=== PATIENT | female | born 1960 | race Caucasian/White ===

== ENCOUNTER 2016-11-06 17:42 | Observation (INO) | payer OTHER ==
[~2016-11-06] VITALS: Ht 154.9 cm; Wt 93.7 kg
[~2016-11-06 17:42] MED LIST: AFRIN,GENASAL D15 ML BOTH NARES; ALKA-SELTZER P1 EAC2 PO; AMBIEN10 MG PO; ASPIR-TRIN325 M1 PO; ASPIRIN EC325 MG PO; ASPIRIN81 M2 PO; Ascorbic Acid,Ester- PO; BACTRIM,SEPT1 TABLET PO; BENTYL10 MG PO; CARDIZEM CD,CA180 MG PO; CLINDAMYCIN HC300 MG PO; CLOPIDOGREL75 MG PO; COZAAR25 MG PO; CRESTOR PO; CRESTOR40 MG PO; Colace PO; DILTIAZEM 24HR180 MG PO; DULERA 100 MCG/13 GM IH; DULERA 200 MCG/13 GM IH; Dulcolax PO; Ecotrin PO; FENOFIBRATE160 M1 PO; FENOFIBRATE54 M1 PO; FLONASE16 G1 BOTH NARES; FUROSEMIDE20 MG PO; FUROSEMIDE40 MG PO; IMDUR30 MG PO; IMDUR60 MG PO; INSULIN PUMP SC; INSULIN PUMP SCCONT; ISOSORBIDE MONO60 MG PO; K-DUR20 MEQ PO; KLOR-CON M2020 MEQ PO; KLOR-CON20 MEQ PO; LASIX20 MG PO; LEVOTHYROXINE112 MCG PO; LEVOTHYROXINE137 MCG PO; LEVOTHYROXINE50 MCG PO; LITE COAT ASPI325 M1 PO; LO-DOSE ASPIRIN81 M1 PO; LOPRESSOR100 M1 PO; LOPRESSOR25 MG PO; LOW DOSE ASPIRI81 M1 PO; Levothroid,Synthroid PO; METOLAZONE5 MG PO; METOPROLOL TAR100 MG PO; METOPROLOL TART50 MG PO; MIRTAZAPINE30 MG PO; NITROSTAT0.4 MG SL; NORVASC5 MG PO; NOVOLIN N100 UNITS/ SC; NOVOLIN,HU100 UNITS1 SC; NOVOLOG MI100 UNIT/4 SC; NOVOLOG100 UNIT/1 SQ; PERCOCET 5/31 TABLET PO; PLAVIX75 MG PO; PROAIR HFA8.5 GM IH; Phenergan PO; RANEXA1000 MG PO; RANEXA500 MG PO; SALINE NASAL SP45 ML BOTH NARES; SENOKOT S,PE1 TABLET PO; SINGULAIR10 MG PO; SYNTHROID100 MCG PO; SYNTHROID137 MCG PO; SYNTHROID150 MCG PO; SYNTHROID25 MCG PO; SYNTHROID50 MCG PO; TAZTIA XT180 M1 PO; THERAGRAN1 TABLET PO; TRICOR145 MG PO; Tricor PO; Tylenol Regular Stre PO; ULTRAM50 MG PO; VENTOLIN HFA18 GM IH; VISTARIL25 MG PO; WELCHOL625 MG PO; ZETIA10 MG PO; ZOFRAN ODT4 MG PO; ZOFRAN ODT8 MG PO; ZOFRAN8 MG PO
[2016-11-06 18:25] LABS: EOSINOPHIL (%) 1.6 % (0-5); EOSINOPHIL COUNT 0.2 K/uL (0-0.3); HEMATOCRIT 41.1 % (36.0-46.0); IMMATURE GRANULOCYTE (%) 0.2 % (0.0-0.7); IMMATURE GRANULOCYTE COUNT 0.2 K/uL; LYMPHOCYTE COUNT 1.3 K/uL (1.0-2.8); MCH 29.5 PG (29.0-34.0); MCHC 33.1 G/DL (30.0-36.0); MCV 89.2 FL (83-99); MEAN PLAT.VOLUME 9.3 uM^3 (9.5-12.4); MONOCYTE (%) 5.4 % (3-12); MONOCYTE COUNT 0.5 K/uL (0-0.8); NEUTROPHIL (%) 79.8 % (45-76); PLATELET COUNT 260 K/uL (156-360); RBC DIS.WIDTH-CV 13.8 % (11.8-14.6); RBC DIS.WIDTH-SD 44.1 % (39-53); RED BLOOD COUNT 4.61 M/uL (3.80-5.20); WHITE BLOOD COUNT 10.1 K/uL (4.1-10.2)
[2016-11-06 18:41] LABS: CHLORIDE 110 mEq/L (99-109); POTASSIUM 3.9 mEq/L (3.7-5.4); SODIUM 141 mEq/L (136-147)
[2016-11-06 18:44] LABS: GLUCOSE 120 mg/dL (70-99)
[2016-11-06 18:45] LABS: ANION GAP 9 MEQ/L (2-14)
[2016-11-06 18:46] LABS: TOTAL BILIRUBIN 0.3 mg/dL (0.0-1.0)
[2016-11-06 18:47] LABS: ALKALINE PHOSPHATASE 77 IU/L (3-129); GFR ESTIMATE (CALCULATED) > 59 mL/min/
[2016-11-06 18:48] LABS: UREA NITROGEN (BUN) 16 mg/dL (9-23)
[2016-11-06 18:51] LABS: LIPASE 10 U/L (1.0-51.0)
[2016-11-06 19:41] LABS: C DIFF TOXIN POSITIVE (NEGATIVE)
[2016-11-06 19:49] LABS: PROBE CHECK PASS
[2016-11-06 20:06] LABS: ADD MIUA? NO; BILIRUBIN NEGATIVE; BLOOD NEGATIVE; COLOR YELLOW ((YELLOW)); GLUCOSE (STRIP) NEGATIVE; KETONES NEGATIVE; LEUKOCYTES NEGATIVE; NITRITE NEGATIVE; PROTEIN (STRIP) NEGATIVE; SPECIFIC GRAVITY 1.009 (1.000-1.030); UCUL ADDED? NO; UROBILINOGEN 0.2 MG/DL (0.2-1.0)
[2016-11-06] MEDS ORDERED: METOPROLOL TART25 MG PO (21:14)
[2016-11-06] MEDS ORDERED: LEVO-T88 MCG PO (21:18)
[2016-11-06] MEDS ORDERED: ERGOCALCIF50000 UNIT PO (21:19)
[2016-11-06] MEDS ORDERED: ALLEGRA ALLERG180 MG PO (21:20)
[2016-11-06 23:33] VITALS: BP 132/63
[2016-11-07 01:26] LABS: POINT-OF-CARE METER ID UU13113831
[2016-11-07 03:51] VITALS: BP 120/56
[2016-11-07 05:34] LABS: POINT-OF-CARE METER ID UU13113831
[2016-11-07 07:28] LABS: ANION GAP 11 MEQ/L (2-14); CHLORIDE 111 MEQ/L (99-109); GFR ESTIMATE (CALCULATED) > 59 mL/min/; GLUCOSE 128 mg/dL (70-99); POTASSIUM 3.3 MEQ/L (3.7-5.4); SAMPLE HEMOLYSIS CHECK 0; SAMPLE ICTERIC CHECK 0; SAMPLE LIPEMIA CHECK 0; SODIUM 143 MEQ/L (136-147); UREA NITROGEN (BUN) 12 mg/dL (9-23)
[2016-11-07 07:29] LABS: EOSINOPHIL (%) 1.5 % (0-5); EOSINOPHIL COUNT 0.2 K/uL (0-0.3); HEMATOCRIT 37.4 % (36.0-46.0); IMMATURE GRANULOCYTE (%) 0.3 % (0.0-0.7); LYMPHOCYTE COUNT 1.4 K/uL (1.0-2.8); MCH 28.2 PG (29.0-34.0); MCV 90.8 FL (83-99); MEAN PLAT.VOLUME 9.7 uM^3 (9.5-12.4); MONOCYTE (%) 4.6 % (3-12); MONOCYTE COUNT 0.5 K/uL (0-0.8); NEUTROPHIL (%) 80.3 % (45-76); NEUTROPHIL COUNT 8.4 K/uL (1.8-6.4); PLATELET COUNT 219 K/uL (156-360); RBC DIS.WIDTH-CV 14.1 % (11.8-14.6); RBC DIS.WIDTH-SD 46.6 % (39-53); RED BLOOD COUNT 4.12 M/uL (3.80-5.20); WHITE BLOOD COUNT 10.4 K/uL (4.1-10.2)
[2016-11-07 08:40] VITALS: BP 121/58
[2016-11-07 10:28] LABS: POINT-OF-CARE METER ID UU13113831
[2016-11-07] MEDS ORDERED: FLAGYL500 MG PO (11:32)
[2016-11-07 11:34] VITALS: BP 100/51
== END 2016-11-07 12:37 | disposition home or self-care (01) ==
LOC: EME 17:42 → 5WEST 22:06 → EDOF 22:06 → 5WEST 23:22
PROVIDERS: Emergency Medicine; Hospitalist
DX: A04.7 Enterocolitis due to Clostridium difficile (principal); I48.0 Paroxysmal atrial fibrillation; J44.9 Chronic obstructive pulmonary disease, unspecified; E11.9 Type 2 diabetes mellitus without complications; I25.10 Atherosclerotic heart disease of native coronary artery without angina pectoris; Z95.5 Presence of coronary angioplasty implant and graft; Z79.4 Long term (current) use of insulin
CPT/HCPCS: 80048; 80053; 81003; 82948; 83690; 85025; 87493; 87506; 99281; 99285; G0378; J1650; J2405; J2765; J3480; J7030; S0028; S0030

== ENCOUNTER 2018-04-03 13:12 | Emergency (ER) | payer OTHER ==
[~2018-04-03] VITALS: Ht 154.9 cm; Wt 101.8 kg
[~2018-04-03 13:12] MED LIST changes: +ALLEGRA ALLERG180 MG PO; +ERGOCALCIF50000 UNIT PO; +FLAGYL500 MG PO; +LEVO-T88 MCG PO; +METOPROLOL TART25 MG PO
[2018-04-03 14:42] LABS: HEMATOCRIT 39.4 % (36.0-46.0); HEMOGLOBIN 12.9 G/DL (11.9-15.5); MCH 29.8 PG (29.0-34.0); MCHC 32.7 G/DL (30.0-36.0); PLATELET COUNT 235 K/uL (156-360); RBC DIS.WIDTH-CV 13.4 % (11.8-14.6); RBC DIS.WIDTH-SD 45.2 % (39-53); RED BLOOD COUNT 4.33 M/uL (3.80-5.20); WHITE BLOOD COUNT 9.5 K/uL (4.1-10.2)
[2018-04-03 14:52] LABS: ALBUMIN 4.1 g/dL (3.2-4.8); CHLORIDE 106 mEq/L (99-109); POTASSIUM 4.1 mEq/L (3.7-5.4); SODIUM 140 mEq/L (136-147)
[2018-04-03 14:54] LABS: GLUCOSE 178 mg/dL (70-99)
[2018-04-03 14:55] LABS: TOTAL PROTEIN 7.6 g/dL (6.4-8.3)
[2018-04-03 14:56] LABS: TOTAL BILIRUBIN 0.6 mg/dL (0.0-1.0)
[2018-04-03 14:58] LABS: ALKALINE PHOSPHATASE 74 IU/L (3-129); CREATININE 0.7 mg/dL (0.6-1.3); GFR ESTIMATE (CALCULATED) > 59 mL/min/
[2018-04-03 14:59] LABS: UREA NITROGEN (BUN) 20 mg/dL (9-23)
[2018-04-03 15:00] LABS: AST (GOT) 12 IU/L (2-34)
[2018-04-03 15:01] LABS: ALT (GPT) 18 IU/L (3-49)
[2018-04-03 15:08] LABS: QUANTITATIVE HCG < 4.0 MIU/ML
[2018-04-03 16:03] LABS: LIPASE 8 U/L (1.0-51.0)
[2018-04-03 16:08] LABS: TROP-I INTERPRETATION NEGATIVE; TROPONIN-I < 0.01 ng/mL (0.0-0.30)
[2018-04-03 17:46] VITALS: BP 138/71
== END 2018-04-03 17:48 | disposition home or self-care (01) ==
LOC: EME 13:12
PROVIDERS: Physician Assistant
DX: R11.2 Nausea with vomiting, unspecified (principal); E11.9 Type 2 diabetes mellitus without complications; I10 Essential (primary) hypertension; I25.10 Atherosclerotic heart disease of native coronary artery without angina pectoris; J43.9 Emphysema, unspecified; Z79.4 Long term (current) use of insulin; J45.909 Unspecified asthma, uncomplicated; E03.9 Hypothyroidism, unspecified; Z95.5 Presence of coronary angioplasty implant and graft; Z90.49 Acquired absence of other specified parts of digestive tract; Z90.710 Acquired absence of both cervix and uterus; Z88.5 Allergy status to narcotic agent
CPT/HCPCS: 71046; 80053; 81003; 83690; 84484; 84702; 85027; 93005; 99281; 99284; J2405; J7030